=== PATIENT | female | born 1960 | race Caucasian/White ===

== ENCOUNTER 2018-09-18 07:56 | Emergency (ER) | payer OTHER, SELFPAY ==
[2018-09-18 08:02] VITALS: BP 179/87; PULSE 72; RESP 16; TEMP 36.4; O2SAT 100
--- NOTE | 2018-09-18 08:05 | W.ED.GENAD ---
Discharge Plan Disposition Patient Disposition: HOME Condition: Fair Discharge Details Chief Complaint: Orthopedic Clinical Impression: Maltracking of left patella, Acute knee pain Primary Care Provider: Zamzam Flores ED Provider: Sirisha Perez Home Meds and New Rx's Prescriptions: New ibuprofen 600 mg tablet 600 mg PO QID PRN (Reason: pain) Qty: 30 RF: 0 Continued lisinopril 20 mg Tablet 20 mg PO DAILY RF: 0 levothyroxine 100 mcg Tablet 100 mcg PO DAILY RF: 0 atenolol 50 mg Tablet 50 mg PO DAILY RF: 0 Discharge Instructions Instructions: Patellofemoral Pain Syndrome (ED), Knee Pain (ED) Additional Instructions: Encourage rest, ice, elevation. Continue with Tylenol and/or Motrin as needed for discomfort. Attached is prescription for Ibuprofen, this will help with swelling. Continue with brace when at work or on your feet for extended periods of time. Attached is referral for physical therapy, please call to schedule appointment. Call orthopedics to schedule appointment for your knee pain. If you develop fevers/chills, increased pain, redness of the knee or other new/worsening symptoms please seek care urgently once again. Please preform exercises as attached to strengthen your thigh. Stand Alone Forms: Physical Therapy Referral, Work Release Referrals: Zamzam Flores [Primary Care Provider] - Kameron Reno MD [ [facility] STAFF PHYSICIAN] - Discharge Data Discharge Date/Time-TO BE ENTERED AT DEPARTURE: 09/18/18 09:10 Medical Decision Making Patient is a 58-year-old female presents today with chief complaint of left knee pain. 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 Has not had issues since that time. However, states that over 1 week ago, she was sitting in unusual position and since that time is had pain in the left knee. She was seen by her primary care and placed in a 5-day course of steroids. She reports that historically, this is worked very well for her knee swelling. However, despite this regimen the pain has persisted. She denies any trauma to the knee. Is not had any previous imaging to the knee. On exam, patient appears to be resting comfortably. She is ambulating with an antalgic gait. She has mild swelling to the knee. Ligamentously intact. Patient is lacking approximate 10 degrees to full extension. Full flexion. Negative Drew's exam. 2+ distal pulses. No erythema, warmth. No evidence of infection. Patient is afebrile. Plan for imaging, I did advise that this may be secondary to arthritis. Patient took an anti-inflammatory prior to arrival, will augment this with Tylenol. XR reviewed by myself and radiologist. Significant for patellarfemoral degenerative changes. Patella is tracking laterally. Discussed this with the patient. Gave exercises, demonstrated and printed off exercise instructions. As she feels the knee is weak, will give brace to aid in support. Encouraged RICE. Referral given to PT. Patient feels that this pain has recurred, advised f/u with orthopedics. She will call to schedule appointment in the next few weeks. Discussed new/worsening symptoms and when to seek care urgently once again. All questions and concerns were addressed, she is in agreement with this plan. HPI General Mode of arrival: ambulatory. Date/Time Provider Initiated Documentation: 09/18/18 07:58. Limitations to Documentation: no limitations. Information obtained by: patient and RN notes reviewed. History of Present Illness 58 year old F presents to the emergency department with the chief complaint of left knee pain, described as severe, Quality is described as aching, and is localized to the left and lower extremity. Patient reports no radiation. Patient started experiencing this day(s) and it has been constant. Immobilization improves symptom(s), Movement worsens symptoms . Patient notes no other symptoms.. Patient did receive the following treatments prior to arrival, NSAID Related Data Home Medications Medication Instructions Recorded Confirmed atenolol 50 mg PO DAILY 09/18/18 09/18/18 ibuprofen 600 mg PO QID PRN #30 tab 09/18/18 levothyroxine 100 mcg PO DAILY 09/18/18 09/18/18 lisinopril 20 mg PO DAILY 09/18/18 09/18/18 Previous Rx's Medication Instructions Recorded ibuprofen 600 mg PO QID PRN #30 tab 09/18/18 Allergies Allergy/AdvReac Type Severity Reaction Status Date / Time No Known Allergies Allergy Unverified 09/18/18 08:05 General Stated Complaint: Orthopedic ZAID: 4 Review of Systems Constitutional Reports as per HPI, Denies chills, Denies fever(s), Denies headache(s) and Denies weakness ENT Denies headache(s) Cardiovascular Reports as per HPI Respiratory Reports as per HPI and Denies cough Musculoskeletal Reports as per HPI and Denies tingling Integumentary/Breasts Reports as per HPI, Denies rash and Denies wounds Neurologic Reports as per HPI, Denies headache(s), Denies tingling, Denies paresthesias and Denies weakness Exam Const General: cooperative, healthy appearing, comfortable, no acute distress, well developed and well groomed Nutritional Appearance: average body habitus and well nourished Orientation: alert and awake Resp Effort & Inspection: normal respiratory effort, able to speak in complete sentences and no respiratory distress Cardio Rate: regular rate Rhythm: regular rhythm Skin General skin exam: no rashes or lesions noted Lesions: no lesions Rashes: no rashes Trauma: no lacerations or abrasions Neuro General: alert and awake Cognition: normal cognition Speech: speech normal Gait: antalgic Motor: muscle tone normal throughout Sensory Exam: no sensory deficits noted Extrem General: full ROM, normal capillary refill, no pedal edema, no calf tenderness and abnormal gait (antalgic) Left lower extremity: normal capillary refill, knee Details: swelling (small effusion), abnormal ROM (pain with forced flexion), knee ligament exam normal Details: anterior drawer test normal, posterior drawer test normal, valgus stress test normal and varus stress test normal; pain with axial loading and Drew's Test Details: negative medially and laterally; no tenderness, ROM abnormal, no ecchymosis, no crepitus, no deformity and no unusual warmth, lower leg Details: normal to inspection and no edema; no erythema, no tenderness and no palpable cords and foot (2+ distal pulses); abnormal ROM (lacking full extension) Psych Appearance: grossly normal and well kempt Mental Status: mental status grossly normal Speech and Movement: speech and movement normal Course Vital Signs Temperature 36.4 C L 09/18/18 08:02 Pulse 72 09/18/18 08:02 Respiratory Rate 16 09/18/18 08:02 Blood Pressure 179/87 H 09/18/18 08:02 Pulse Oximetry 100 09/18/18 08:02 Temperature 36.4 C L 09/18/18 08:02 Temperature Source Skin 09/18/18 08:02 Pulse 72 09/18/18 08:02 Respiratory Rate 16 09/18/18 08:02 Respiratory Effort Non-Labored 09/18/18 08:02 Blood Pressure 179/87 H 09/18/18 08:02 Blood Pressure Position Sitting 09/18/18 08:02 Pulse Oximetry 100 09/18/18 08:02 Oxygen Delivery Method Room Air 09/18/18 08:02 Oxygen Flow Rate 0 09/18/18 08:02 Pain Level 5 09/18/18 08:02
[2018-09-18] MEDS: Acetaminophen 325 MG TAB 650 MG PO (08:15)
--- NOTE | 2018-09-18 08:33 | DI.RAD_ITS ---
SYMPTOM/DIAGNOSIS: EFFUSION,. WEAKNESS, PAIN LEFT KNEE: Three weight bearing views and patellar view were performed. No fracture is identified. There is a small joint effusion. There are degenerative changes of the patellofemoral joint. The femoral tibial joint spaces are well maintained. IMPRESSION: Patellofemoral degenerative changes. No acute abnormality.
== END 2018-09-18 09:10 | disposition home or self-care (01) ==
PROVIDERS: Emergency Provider Physician Assistant; PCP Nurse Practitioner
DX: M22.2X2 Patellofemoral disorders, left knee (principal); M25.562 Pain in left knee
CPT/HCPCS: 29505; 99283; 73564; L1820

== ENCOUNTER 2018-09-28 10:47 | Outpatient (CLI) | payer OTHER, SELFPAY ==
--- NOTE | 2018-09-28 09:45 | DI.RAD_ITS ---
SYMPTOM/DIAGNOSIS PAIN BILATERAL MERCHANT VIEWS: 09/28 Bilateral Merchant views were obtained. On the right there is moderate patella subluxation and slight narrowing of the lateral patella femoral cartilaginous joint space. On the left there is moderate narrowing of the patellofemoral cartilaginous joint space and moderate lateral patellar subluxation. Mild marginal osteophyte formation noted laterally on the left.
== END 2018-09-28 11:07 ==
PROVIDERS: PCP Nurse Practitioner; Visit Provider Orthopaedic Surgery
DX: M17.12 Unilateral primary osteoarthritis, left knee (principal); M25.561 Pain in right knee; M25.562 Pain in left knee; S83.011A Lateral subluxation of right patella, initial encounter; S83.012A Lateral subluxation of left patella, initial encounter
CPT/HCPCS: 73565

== ENCOUNTER → 2023-04-28 01:59 | Outpatient (CLI) | payer OTHER, SELFPAY ==
--- NOTE | 2023-04-28 | DI.CTLCSR_ITS ---
Exam(s) CT CHEST LUNG CANCER SCREEN EXAM: CT CHEST LUNG CANCER SCREEN CLINICAL HISTORY: SCREENING FOR LUNG CA,Z12.2,CURRENT SMOKER. TECHNIQUE: Imaging Protocol: Low Dose Technique CONTRAST MATERIAL: None COMPARISON: No exams were available for comparison FINDINGS: CHEST: LUNGS: There are no ominous pulmonary nodules. There are no confluent infiltrates. No pleural effusi ons. MEDIASTINUM: There is no obvious hilar nor mediastinal adenopathy. CARDIAC: Heart size is normal. There is no pericardial effusion.Caliber of the thoracic aorta is wit hin normal limits. OTHER: OSSEOUS: No significant osseous lesions.. IMPRESSION: 1. No pulmonary nodules evident 2. No infiltrates nor pleural effusions nor intrathoracic adenopathy. 3. Lung RADS Cat 1 - Negative: No nodules and definitely benign nodules Lung-RADS 1.0 CATEGORIES: Category 0 - Prior chest CT exam(s) being located for comparison. Category 1 - Annual screening in 12 months. No nodules or definitely benign nodules. Category 2 - Annual screening in 12 months. Benign appearance. Nodules with low likelihood of becomin g active cancer. Category 3 - 6-month follow-up. Probably benign. Short-term follow-up suggested. Nodules with low lik elihood of becoming active cancer. Category 4A - 3-month follow-up and CT/PET if >8 mm in size. Suspicious finding. Findings which requi re additional testing. Category 4B - Findings which require additional testing and tissue sampling. Category 4X - Category 3 or 4 nodules with additional features or imaging findings that increases the suspicion of malignancy. Modifier S- Potentially clinically significant findings (non lung cancer) RADIATION DOSE DELIVERED: Total DLP DATA REPOSITORY: All CT scans at this facility are submitted to the National Radiology Data Registry (NRDR) Dose Index Registry (DIR) with the [employer] ([employer]). RADIATION OPTIMIZATION: All CT scans at this facility use at least one of these dose optimization te chniques: automated exposure control; mA and/or kV adjustment per patient size (includes targeted exa ms where dose is matched to clinical indication); or iterative reconstruction.
--- NOTE | 2023-04-28 13:05 | DI.MAMMO_ITS ---
Exam(s) MAMMO SCREENING EXAM: MAMMO SCREENING CLINICAL HISTORY: Z12.31 Visit for screening mammogram TECHNIQUE: Mammograms were interpreted according to the usual protocol including computer analysis w [employer] CAD system, tomosynthesis and C-view imaging. COMPARISON: 2010 through 2018 from [facility] FINDINGS: The breasts are composed of heterogeneously dense fibroglandular densities, Breast Density category C . No suspicious masses or suspicious microcalcifications are seen. No skin thickening or abnormal axillary lymph nodes are seen. There has been no significant change from prior exams. IMPRESSION: BI-RADS Category 1, Negative mammogram. Yearly screening mammography is recommended. Breast Density Category C, heterogeneously Dense. The mammogram demonstrates the patient's breast tissue is dense. Dense breast tissue is very common a nd is not abnormal but dense breast tissue can make it harder to find cancer on a mammogram. Also, de nse breast tissue may increase breast cancer risk. This information about the result of the mammogram report was provided to the patient to raise their awareness. Use this report when you speak with the patient about their risks for breast cancer, which includes their family history. At that time, you may recommend additional screening tests (Ultrasound or MRI) as they might be useful based on their r isk. A negative radiographic report should not delay biopsy if a dominant or clinically suspicious mass is present. Up to ten percent of cancers are not identified on mammography. A negative report may reinforce clinical impression. Adenosis and dense breasts may obscure an underlying neoplasm. False positive reports average 6 to 10%.
== END ==
PROVIDERS: PCP Nurse Practitioner; Visit Provider Nurse Practitioner
DX: Z12.31 Encounter for screening mammogram for malignant neoplasm of breast (principal); Z12.2 Encounter for screening for malignant neoplasm of respiratory organs; F17.210 Nicotine dependence, cigarettes, uncomplicated
CPT/HCPCS: 71271; 77063; 77067